=== PATIENT | female | born 1995 | race Caucasian/White ===

== ENCOUNTER 2018-07-21 22:24 | Emergency (ER) | payer MEDICAID ==
[2018-07-22] MEDS ORDERED: NORMAL SALINE 1000 ML 1,000 ML IV ONE (01:18)
[2018-07-22] MEDS ORDERED: MORPHINE SULFATE 10 MG/ML INJ IV ONE (01:19)
[2018-07-22] MEDS ORDERED: ONDANSETRON HCL INJ/PF 4 MG/2 ML SDV IV ONE (01:19)
[2018-07-22] MEDS ORDERED: DIPHENHYDRAMINE HCL 50 MG/ML VIAL IV ONE (01:19)
--- NOTE | 2018-07-22 01:19 | ER Document Report ---
ED GI/ - General Chief Complaint: OB Problem (<20wks) Stated Complaint: VAGINAL BLEEDING/FEVER Time Seen by Provider: 07/22/18 01:13 Primary Care Provider: WOOD SANDOVAL MD [Primary Care Provider] - Follow up as needed Notes: Patient is a 23-year-old female, at 9 weeks gestation by first trimester ultrasound, that comes to emergency department for chief complaint of abdominal pain, vaginal bleeding, and fever of 103 measured at home prior to arrival. Patient states that she was seen on Thursday (5 days ago), given Cytotec, states she took 2 doses and then stopped because the cramping was "too bad". She states that she started feeling worse over the past 2 days and then developed a fever today. She denies vomiting, she denies any other sick symptoms including sore throat, cough, congestion. She states she does have a whitish vaginal discharge in addition to the bleeding. TRAVEL OUTSIDE OF THE [place] IN LAST 30 DAYS: No - Related Data Allergies/Adverse Reactions: No Known Allergies Allergy (Verified 06/10/13 17:14) Past Medical History - General Information source: Patient - Social History Smoking Status: Never Smoker Frequency of alcohol use: None Drug Abuse: None Lives with: Family Family History: Reviewed & Not Pertinent - Medical History Medical History: Negative Past Surgical History: Reports: Hx Tonsillectomy - Immunizations Immunizations up to date: No Hx Diphtheria, Pertussis, Tetanus Vaccination: No Review of Systems - Review of Systems Constitutional: No symptoms reported EENT: No symptoms reported Cardiovascular: No symptoms reported Respiratory: No symptoms reported Gastrointestinal: See HPI Genitourinary: See HPI Female Genitourinary: See HPI Musculoskeletal: No symptoms reported Skin: No symptoms reported Hematologic/Lymphatic: No symptoms reported Neurological/Psychological: No symptoms reported Physical Exam - Vital signs Vitals: Temp Pulse Resp BP Pulse Ox 100.2 F 107 H 17 152/90 H 97 07/21/18 22:43 07/21/18 22:43 07/21/18 22:43 07/21/18 22:43 07/21/18 22:43 - Notes Notes: GENERAL: Alert, interacts well. No acute distress. HEAD: Normocephalic, atraumatic. EYES: Pupils equal, round, and reactive to light. Extraocular movements intact. ENT: Oral mucosa moist, tongue midline. Oropharynx unremarkable. Airway patent. Nares patent, no nasal septal hematoma, TM's intact. NECK: Full range of motion. Supple. Trachea midline. LUNGS: Clear to auscultation bilaterally, no wheezes, rales, or rhonchi. No respiratory distress. HEART: Regular rate and rhythm. No murmur ABDOMEN: Soft, non-tender. Non-distended. Bowel sounds present in all 4 quadrants. GENITOURINARY: Minimal amount of bleeding, small amount of discharge, no cervical motion tenderness noted, no products of conception noted. Examination performed with Stefani RODRIGUEZ present at bedside. EXTREMITIES: Moves all 4 extremities spontaneously. No edema, normal radial and dorsalis pedis pulses bilaterally. No cyanosis. BACK: no cervical, thoracic, lumbar midline tenderness. No saddle anesthesia, normal distal neurovascular exam. NEUROLOGICAL: Alert and oriented x3. Normal speech. [cranial nerves II through XII grossly intact]. PSYCH: Normal affect, normal mood. SKIN: Warm, dry, normal turgor. No rashes or lesions noted. Course - Re-evaluation Re-evalutation: Patient initially with temperature 100.2, borderline tachycardia, unremarkable blood pressure. Reported high fever at home. However she is very well- appearing. She is conversational, alert, talkative. She has some lower ab dominal tenderness which is mild but no guarding. No sick symptoms reported otherwise. Unremarkable exam otherwise. Pelvic examination showing some blood and discharge without products of conception noted. CBC unremarkable, chemistry unremarkable, urinalysis was performed with straight catheterization and this was unremarkable. Wet mount showing 3+ white blood cells, 4+ bacteria, no contamination, negative trichomonas. Gonorrhea and Chlamydia negative. Discussed with Dr. Vaughn. Ultrasound performed to rule out abscess, endometritis, incomplete miscarriage. No retained products noted, no abscess noted, no acute findings. I discussed with Dr. Christopher Mcginnis, PROGRAM FACILITATOR human services professional, he recommends that patient be treated for potential pelvic infection with Rocephin now, doxycycline and Flagyl at home, and close follow-up in the office with return precautions. I discussed this in detail with patient. Patient states satisfaction and agreement with plan. Stable at time of discharge. - Vital Signs Vital signs: Temp Pulse Resp BP Pulse Ox 98.6 F 95 18 128/75 H 100 07/22/18 05:56 07/22/18 05:56 07/22/18 05:56 07/22/18 05:56 07/22/18 05:56 - Laboratory Result Diagrams: 07/22/18 02:00 07/22/18 02:00 Laboratory results interpreted by me: 07/22/18 07/22/18 02:00 03:23 WBC 10.8 H Urine Ketones TRACE H Urine Blood MODERATE H Discharge - Discharge Clinical Impression: Lower abdominal pain, Miscarriage Fever Qualifiers: Fever type: unspecified Qualified Code(s): R50.9 - Fever, unspecified Condition: Stable Disposition: HOME, SELF-CARE Additional Instructions: Your ultrasound shows that you have completed the miscarriage. Your workup and evaluation are most consistent with a pelvic infection, we are treating for this. Complete doxycycline and Flagyl antibiotics as prescribed. Take Phenergan if needed for nausea. Follow-up closely with PROGRAM FACILITATOR, I spoke with Dr. Christopher smith, call today to establish close follow-up. Return if you worsen including severe pain, spiking fevers, heavy bleeding with dizziness, passing out, or any other concerning or worsening symptoms. Prescriptions: Doxycycline Hyclate 100 mg PO BID #14 capsule Metronidazole [Flagyl 500 mg Tablet] 500 mg PO BID #14 tablet Promethazine HCl [Phenergan 25 mg Tablet] 25 mg PO Q6H PRN #15 tablet PRN Reason: Referrals: WOOD SANDOVAL MD [Primary Care Provider] - Follow up as needed
[2018-07-22 02:16] LABS: ABSOLUTE BASOPHILS # (AUTO) 0.1 10^3/uL (0.0-0.2); ABSOLUTE EOSINOPHILS # (AUTO) 0.1 10^3/uL (0.0-0.6); ABSOLUTE LYMPHOCYTES (AUTO) 1.7 10^3/uL (0.5-4.7); BASOPHILS % (AUTO) 0.5 % (0-2); EOSINOPHILS % (AUTO) 0.8 % (0-6); HEMATOCRIT 37.6 % (36.0-47.0); HEMOGLOBIN 12.4 g/dL (12.0-15.5); LYMPHOCYTES % (AUTO) 15.8 % (13-45); MEAN CORPUSCULAR HEMOGLOBIN 27.8 pg (27.0-33.4); MEAN CORPUSCULAR HGB CONC 33.1 g/dL (32.0-36.0); MEAN CORPUSCULAR VOLUME 84 fl (80-97); MONOCYTES % (AUTO) 9.3 % (3-13); PLATELET COUNT 254 10^3/uL (150-450); RED BLOOD COUNT 4.48 10^6/uL (3.72-5.28); RED CELL DISTRIBUTION WIDTH 13.7 % (11.5-14.0); SEGMENTED NEUTROPHILS % (AUTO) 73.6 % (42-78); TOTAL CELLS COUNTED % (AUTO) 100 %; WHITE BLOOD COUNT 10.8 10^3/uL (4.0-10.5)
[2018-07-22 02:26] LABS: ALANINE AMINOTRANSFERASE 19 U/L (9-52); ALBUMIN 4.2 g/dL (3.5-5.0); ALKALINE PHOSPHATASE 44 U/L (38-126); ANION GAP 10 (5-19); ASPARTATE AMINO TRANSFERASE 19 U/L (14-36); BILIRUBIN,DIRECT 0.3 mg/dL (0.0-0.4); BILIRUBIN,TOTAL 0.3 mg/dL (0.2-1.3); BLOOD UREA NITROGEN 17 mg/dL (7-20); CALCIUM 8.9 mg/dL (8.4-10.2); CARBON DIOXIDE 26 mmol/L (22-30); CHLORIDE 105 mmol/L (98-107); GLUCOSE 93 mg/dL (75-110); SODIUM 140.6 mmol/L (137-145); TOTAL PROTEIN 6.8 g/dL (6.3-8.2)
[2018-07-22 02:58] LABS: T.VAGINALIS (WET MOUNT) NO TRICHOMONAS SEEN; YEAST (WET MOUNT) NO YEAST SEEN
[2018-07-22 02:59] LABS: BACTERIA (WET MOUNT) 4+ BACTERIA SEEN; RBCS (WET MOUNT) 4+ RBCS SEEN; WBCS (WET MOUNT) 3+ WBCS SEEN
[2018-07-22 03:56] LABS: APPEARANCE,URINE SLIGHTLY-CLOUDY; BILIRUBIN,URINE NEGATIVE (NEGATIVE); COLOR,URINE YELLOW; GLUCOSE, URINE NEGATIVE (NEGATIVE); KETONES,URINE TRACE mg/dL (NEGATIVE); LEUKOCYTE ESTERASE,URINE NEGATIVE (NEGATIVE); NITRITE,URINE NEGATIVE (NEGATIVE); PROTEIN,URINE NEGATIVE (NEGATIVE); URINE SPECIFIC GRAVITY 1.031; UROBILINOGEN,URINE NEGATIVE mg/dL (<2.0)
--- NOTE | 2018-07-22 05:52 | RADIOLOGY REPORT (SQ) ---
EXAM DESCRIPTION: US TRANSVAGINAL COMPLETED DATE/TME: 07/22/2018 04:05 CLINICAL HISTORY: 23 years, Female, fever, pain; retained productions? Endometritis? COMPARISON:None. TECHNIQUE: Grayscale and Doppler sonogram of the pelvis. Transvaginal technique was used for better evaluation of the pelvic viscera FINDINGS: The uterus measures 10 x 4.9 x 4.8 cm. No intrauterine gestational sac is identified. Endometrial stripe: 14 mm. No focal abnormalities to suggest retained products of conception. Right ovary: Measures 2.7 x 1.7 x 1.5 cm. Normal doppler flow. No mass lesion. Left ovary: Not visualized. Free fluid: None. IMPRESSION: The endometrium appears thickened but there are no findings to suggest retained products of conception. Nonvisualization of the left ovary.
[2018-07-22 05:57] VITALS: BP 128/75
[2018-07-22 05:57] LABS: CHLAM PCR NOT DETECTED (NOT DETECT); GON PCR NOT DETECTED (NOT DETECT)
[2018-07-22] MEDS ORDERED: CEFTRIAXONE INJ 250 MG VIAL IV ONE (06:07)
[2018-07-22] MEDS ORDERED: DOXYCYCLINE HYCLATE 100 MG TABLET PO ONE (06:08)
[2018-07-22] MEDS ORDERED: METRONIDAZOLE 500 MG TABLET PO ONE (06:08)
== END 2018-07-22 07:31 | disposition home or self-care (01) ==
LOC: ER 22:24
DX: O03.9 Complete or unspecified spontaneous abortion without complication (principal); R50.9 Fever, unspecified; Z3A.09 9 weeks gestation of pregnancy
CPT/HCPCS: 99284; 96361; 51701; 96375; 96365; 87040; 36415; 87210; 85025; 80053; 81001; 87491; 87591; 76817; 93976; J1200; J3490 ×2; J2270; J2405; J7030; J0696